=== PATIENT | male | born 1995 | race Caucasian/White ===

== ENCOUNTER 2016-10-21 20:16 | Emergency (ER) | payer SELFPAY ==
[~2016-10-21] VITALS: Ht 172.7 cm; Wt 77.3 kg
[~2016-10-21 20:16] MED LIST: ALBUTEROL SULF8.5 GM IH; NAPROSYN500 MG PO; NORCO 5/3251 TABLET PO
[2016-10-21] MEDS ORDERED: KEFLEX500 MG PO (21:36)
[2016-10-21 21:44] VITALS: BP 163/93
== END 2016-10-21 21:45 | disposition home or self-care (01) ==
LOC: EXP 20:16 → EME 20:16 → EXP 21:45
PROC: 0JQK0ZZ Repair Left Hand Subcutaneous Tissue and Fascia, Open Approach (ICD-10-PCS; principal; 2016-10-21)
DX: S61.412A Laceration without foreign body of left hand, initial encounter (principal); W26.8XXA Contact with other sharp object(s), not elsewhere classified, initial encounter
CPT/HCPCS: 99281; 99284

== ENCOUNTER 2017-04-01 11:26 | Emergency (ER) | payer SELFPAY ==
[~2017-04-01] VITALS: Ht 172.7 cm; Wt 76.3 kg
[~2017-04-01 11:26] MED LIST changes: +KEFLEX500 MG PO
[2017-04-01] MEDS ORDERED: NAPROSYN500 MG PO (13:39)
[2017-04-01 14:02] VITALS: BP 138/77
== END 2017-04-01 14:02 | disposition home or self-care (01) ==
LOC: EME 11:26
DX: S43.402A Unspecified sprain of left shoulder joint, initial encounter (principal); W18.39XA Other fall on same level, initial encounter; Y93.89 Activity, other specified; Y92.832 Beach as the place of occurrence of the external cause
CPT/HCPCS: 73030; 99281; 99283